=== PATIENT | female | born 1950 | race Caucasian/White ===

== ENCOUNTER 2023-10-26 14:09 | Emergency (ER) | payer MEDICARE, OTHER, SELFPAY ==
[2023-10-26 14:13] VITALS: BP 180/97
--- NOTE | 2023-10-26 15:14 | ED.GENMED ---
History of Present Illness
General
Chief Complaint: Flank Pain
Source: patient
Time Seen by Provider: 10/26/23 14:59
Travel History
Have you had any contact with someone who has COVID-19?: No
Do you have any symptoms of coronavirus? Fever > 100 degrees, chills, cough, shortness of breath, sore throat, loss of taste or smell, muscle aches, or headache?: No
History of Present Illness
History of Present Illness:
73-year-old female presents emergency department complaints of left flank pain that started yesterday and continues. The pain is very episodic described as coming and going every few minutes without specific provoking or relieving factors. The
pain is without radiation. Patient denies associated abdominal pain, upper back pain, chest pain, dyspnea, nausea, vomiting, fever, chills, dysuria, urgency, frequency, hematuria, vaginal clear discharge. Bowel movements are normal. Pain is not
particular reminiscent of prior kidney stones in the past.
Past History
Past History
ED Past Medical History: Hyperthyroidism and Other (Kidney stones, reflux)
ED Past Surgical History: Gynecological (Bilateral oophorectomy) and Urological; Negative Cardiac
Social History
Tobacco: Former smoker
Alcohol: Daily
Drug: None
Living: alone
Employment: Employed
Family History
Family History: Other (n/c)
Phy Exam
Physical Exam
Physical Exam:
GENERAL: Alert , in no apparent distress, extremely comfortable appearing, shopping on her phone when I entered the room, pleasant
EYE: pupils equal and reactive
NECK: Supple, no significant adenopathy.
ENT: o/p clr, mmm.
CARDIAC: Regular rate and rhythm .
LUNGS: Clear breath sounds bilaterally, no acute respiratory distress, no wheezes/rales/rhonchi
ABDOMEN: Soft, without focal tenderness, no r/g, no cvat
NEUROLOGICAL: Alert and oriented, no focal neuro deficits
SKIN: Warm and dry, skin intact.
MUSCULOSKELETAL: No edema, well perfused.
PSYCH: Normal and appropriate interaction.
Course
Orders/Labs/Results
Orders:
Orders
10/26/23 15:13
Ketorolac [Toradol] 15 mg IV NOW STA
10/26/23 15:14
CT Abd/pel Without Iv Or Oral Urgent
Comment:
Reason For Exam: L FLANK PAIN
10/26/23 15:27
Complete Blood Count/No Diff Urgent
Comprehensive Metabolic Panel Urgent
Urinalysis Reflex To Culture Urgent
Date Specimen was Collected: 10/26/23
Time Specimen was Collected: 15:22
Abnormal Lab Results
10/26/23
15:27
Chloride 109 H mmol/L
(98-107)
Carbon Dioxide 20 L mmol/L
(22-30)
BUN 24 H mg/dl
(7-17)
10/26/23 15:27
10/26/23 15:27
Vital Signs
Initial and Last Documented VS:
Initial Vital Signs
Temp Pulse Resp BP Pulse Ox
98.0 F 89 18 180/97 97
10/26/23 14:13 10/26/23 14:13 10/26/23 14:13 10/26/23 14:13 10/26/23 14:13
Last Documented Vital Signs
Temp Pulse Resp BP Pulse Ox
98.0 F 89 18 180/97 97
10/26/23 14:13 10/26/23 14:13 10/26/23 14:13 10/26/23 14:13 10/26/23 14:13
*Critical Care Note
Total Time (30-74mins, 75-104mins- exclusive of procedures): Not Applicable
Update Note
Update Note:
Patient presents to the Emergency Department with ____left flank pain
Number and Complexity of Problems Addressed at the Encounter
� Chronic conditions affecting care:
� Acute Exacerbation and/or Progression of Chronic Illness:
� Differential Diagnosis includes: But not limited to obstructing kidney stone, pyelonephritis, musculoskeletal pain, etc.
Amount and/or Complexity of Data to be Reviewed and Analyzed
� I performed an independent evaluation of and my interpretation is:
EKG:
CT: Report noted, stable, no findings to explain patient's pain, patient given copy of report and is aware of importance of follow-up regarding
Xrays:
Laboratory Studies: Generally unremarkable
Other:
� Review of other/old records reveals: Prior records reviewed, patient was noted to have operative intervention for kidney stone March 2021
� Clinical information was obtained by an independent historian:
� Prescriptions/Medications Considered but not given:
� Further testing considered but not performed:
Risk of Complications and/or Morbidity or Mortality of Patient Management
� Social determinants of health affecting care:
� Discussion with other providers (PCP, Hospitalists, Consultants, etc): 5:40 PM overall patient is extremely well-appearing, moves about bed easily, no vascular or neurological findings, workup inconsistent with urgent/emergent
cause of her symptoms such as AAA, obstructing stone, dissection, bowel obstruction, etc. etc. Pain may be musculoskeletal in etiology. Discussed with patient option to add muscle relaxant to her current regimen of Tylenol Motrin which she agrees
with. She has called a friend to drive her home instead of driving home herself. Risk and benefits of medication discussed with her. She will follow-up with her doctor tomorrow.
� Escalation of care including admission/observation vs risk of discharge considered:
ED Attending Note
-
Portions of this chart may have been created with voice recognition software.� Occasional wrong word or��sound alike� substitutions may have occurred due to the inherent limitations of voice recognition software.
Discharge Plan
Departure
Patient Disposition: Home (Routine Discharge)
Date of Disposition: 10/26/23
Time of Disposition: 17:49
Patient with high blood pressure during this ER visit?: Yes
Condition: Good
Discharge Problem:
Back pain
Instructions: Back Pain, BLOOD PRESSURE
Prescriptions:
New
cyclobenzaprine 10 mg tablet
10 mg PO BID PRN (Reason: pain) Qty: 13 0RF
No Action
methimazole 5 MG tablet
2.5 mg PO DAILY
ascorbic acid (vitamin C) [Vitamin C] 500 MG tablet
1,000 mg PO DAILY
Curcumin
2 cap PO DAILY
Zinc/Vit D/Vit K
1 cap PO DAILY
Referrals:
Janelle Whittington MD [Family Provider] - Tomorrow
Activity Restrictions/Additional Instructions:
IF YOU DEVELOP NEW OR WORSENING PAIN, FEVER, CHILLS, PAIN WITH URINATION, DIFFICULTY URINATING, ABDOMINAL PAIN, VOMITING, SWELLING, NUMBNESS, WEAKNESS, OR OTHER WORRISOME SIGNS, PLEASE RETURN TO THE ER IMMEDIATELY.
Interventions
Interventions:
*Risk Screen - Suicide Last Done: 10/26/23 15:20
*General Assessment Last Done: 10/26/23 14:13
*Neglect/Abuse Screening Last Done: 10/26/23 15:20
*ED COVID-19 Vaccine History Last Done: 10/26/23 14:13
ED-Female Genitourinary Assessment Last Done: 10/26/23 15:18
Discharge Date and Time
Print Language: TURKMEN
[2023-10-26 15:19] VITALS: BMI 29.3
[2023-10-26 16:00] VITALS: BP 157/94
[2023-10-26 16:09] LABS: Urine Albumin Negative (Neg - Trace); Urine Bilirubin Negative (Negative); Urine Character Clear (Clear); Urine Color Yellow; Urine Glucose Negative (Negative); Urine Ketone Negative (Negative); Urine Leukocyte Negative (Negative); Urine Nitrite Negative (Negative); Urine Occult Blood Negative (Negative); Urine Specific Gravity 1.015 (<1.030); Urine Urobilinogen Negative (Neg - 1+)
[2023-10-26 16:42] LABS: Hematocrit 38.2 % (37.0-47.0); Hemoglobin 13.1 g/dL (12.0-16.0); Mean Corp Hgb Conc. 34.3 g/dL (33.0-37.0); Mean Corpuscular Hgb 28.3 pg (27.0-31.0); Mean Corpuscular Volume 82.5 fL (81.0-99.0); Mean Platelet Volume 10.3 fL (7.4-10.4); Platelet Count 274 10^3/uL (130-400); Red Blood Cell Count 4.63 10^6/uL (4.20-5.40); Red Cell Dist. Width 13.2 % (11.5-14.5); White Blood Cell Count 8.2 10^3/uL (4.8-10.8)
[2023-10-26] MEDS: TORADOL 15 MG IV (16:42)
[2023-10-26 16:59] LABS: ALT (SGPT) 27 U/L (0-35); AST (SGOT) 30 U/L (14-36); Albumin 4.1 g/dl (3.5-5.0); Alkaline Phosphatase 94 U/L (38-126); Blood Urea Nitrogen 24 mg/dl (7-17); Calcium 10.1 mg/dl (8.4-10.2); Carbon Dioxide 20 mmol/L (22-30); Chloride 109 mmol/L (98-107); Estimated Creatinine Clearance 80 ml/min; Glucose 74 mg/dl (70-99); Potassium 4.4 mmol/L (3.5-5.1); Sodium 140 mmol/L (135-145); Total Bilirubin 0.6 mg/dl (0.2-1.3); Total Protein 7.4 g/dl (6.3-8.2); eGFR > 60.00
[2023-10-26 18:00] VITALS: BP 163/95
[2023-10-26] MEDS: FLEXERIL 10 MG PO (18:14)
== END 2023-10-26 18:35 | disposition home or self-care (01) ==
LOC: EMR 14:09
PROVIDERS: EMERGENCY PHYSICIAN Emergency Medicine; FAMILY PHYSICIAN Internal Medicine
DX: R10.9 Unspecified abdominal pain (principal); E05.90 Thyrotoxicosis, unspecified without thyrotoxic crisis or storm; K21.9 Gastro-esophageal reflux disease without esophagitis; Z87.442 Personal history of urinary calculi; Z87.891 Personal history of nicotine dependence; Z90.722 Acquired absence of ovaries, bilateral
CPT/HCPCS: 99284; 96374; 74176; 80053; 81003; 85027

== ENCOUNTER → 2024-01-05 13:02 | Outpatient (REF) | payer MEDICARE, OTHER, SELFPAY | LOC: HWRAD 13:02 | PROVIDERS: ATTENDING PHYSICIAN Internal Medicine | DX: Z12.31 Encounter for screening mammogram for malignant neoplasm of breast (principal); Z78.0 Asymptomatic menopausal state | CPT/HCPCS: 77063; 77067; 77080 ==

== ENCOUNTER → 2024-05-04 10:17 | Outpatient (REF) | payer MEDICARE, OTHER, SELFPAY | LOC: RAD 10:17 | PROVIDERS: ATTENDING PHYSICIAN Surgery; FAMILY PHYSICIAN Internal Medicine | DX: N13.2 Hydronephrosis with renal and ureteral calculous obstruction (principal) | CPT/HCPCS: 78708; A9539 ==

== ENCOUNTER 2024-06-25 06:30 | Day surgery (SDC) | payer MEDICARE, OTHER, SELFPAY | END 2024-06-25 11:34 | disposition home or self-care (01) | LOC: GI 06:30 | PROVIDERS: ATTENDING PHYSICIAN Internal Medicine Gastroenterology | DX: Z12.11 Encounter for screening for malignant neoplasm of colon (principal); D12.2 Benign neoplasm of ascending colon; D12.3 Benign neoplasm of transverse colon; K57.30 Diverticulosis of large intestine without perforation or abscess without bleeding; K64.0 First degree hemorrhoids; R19.7 Diarrhea, unspecified; K22.2 Esophageal obstruction; K44.9 Diaphragmatic hernia without obstruction or gangrene; R12 Heartburn | CPT/HCPCS: 45385; 45380; 43239; 88305; 88342 ==

== ENCOUNTER → 2024-07-09 08:16 | Outpatient (REF) | payer MEDICARE, OTHER, SELFPAY | LOC: RAD 08:16 | PROVIDERS: ATTENDING PHYSICIAN Internal Medicine Endocrinology, Diabetes & Metabolism; FAMILY PHYSICIAN Internal Medicine | DX: E05.90 Thyrotoxicosis, unspecified without thyrotoxic crisis or storm (principal); E05.20 Thyrotoxicosis with toxic multinodular goiter without thyrotoxic crisis or storm | CPT/HCPCS: 76536 ==

== ENCOUNTER 2024-08-26 09:42 | Inpatient (IN) | payer MEDICARE, OTHER, SELFPAY ==
[2024-08-06 11:09] LABS: Hematocrit 40.4 % (37.0-47.0); Hemoglobin 13.5 g/dL (12.0-16.0); Mean Corp Hgb Conc. 33.4 g/dL (33.0-37.0); Mean Corpuscular Hgb 28.4 pg (27.0-31.0); Mean Corpuscular Volume 85.1 fL (81.0-99.0); Mean Platelet Volume 10.6 fL (7.4-10.4); Platelet Count 296 10^3/uL (130-400); Red Blood Cell Count 4.75 10^6/uL (4.20-5.40); Red Cell Dist. Width 13.3 % (11.5-14.5)
[2024-08-06 11:40] LABS: ALT (SGPT) 34 U/L (0-35); AST (SGOT) 27 U/L (14-36); Albumin 4.5 g/dl (3.5-5.0); Alkaline Phosphatase 77 U/L (38-126); Blood Urea Nitrogen 23 mg/dl (7-17); Calcium 9.9 mg/dl (8.4-10.2); Carbon Dioxide 21 mmol/L (22-30); Chloride 106 mmol/L (98-107); Glucose 147 mg/dl (70-99); Sodium 138 mmol/L (135-145); Total Bilirubin 0.9 mg/dl (0.2-1.3); Total Protein 7.3 g/dl (6.3-8.2); eGFR 59.86
[2024-08-06 14:15] VITALS: BMI 29.0
[2024-08-06 14:34] LABS: Glycohemoglobin (HgbA1c) 5.5 % (4.0-5.6)
[2024-08-12 07:42] VITALS: BMI 29.0
--- NOTE | 2024-08-12 15:32 | VNURNOTE ---
Chart reviewed. Patient will be admitted morning of surgery for L TKA 08/26. Patient will have a CM at to assess DC dispo. VN referral in [facility] status in [facility]. Liaison will follow up with CM post-op.
[2024-08-26] VITALS (14 sets, daily range): BP systolic 95–145; BP diastolic 48–86; PULSE 75; O2SAT 95; BMI 29.0
[2024-08-26] MEDS: CELEBREX 200 MG PO (10:09)
[2024-08-26] MEDS: NORMOSOL-R/PLASMALYTE-A 1000 IV ×2 (10:10→15:42)
[2024-08-26] MEDS: TYLENOL 650 MG PO ×3 (10:10→19:38)
--- NOTE | 2024-08-26 12:43 | W.PN.UPDATE ---
Update Note
Progress Note Update
L knee OA s/p L TKA w/ Dr Viramontes 08/26/24
DVT prophylaxis - ASA, b/l venous foot pumps
GERD and Hiatal hernia - add Pepcid HS
Daily alcohol - 1-2 glasses of wine nightly reported
- Add thiamine and folic acid
- Consider Serax HS and Gabapentin
- Monitor for potential s/sx of withdrawal
Hypercholesterolemia
Mild Schatzki's ring
Colon polyps
Diverticulosis
Cholelithiasis, asymptomatic
Nephrolithiasis
E coli bacteremia and urosepsis secondary to the above 02/2021
Lumbosacral degenerative disc disease
Hyperthyroidism
History of endometrial hyperplasia
Osteopenia
History of tobacco abuse
[2024-08-26] MEDS: ROXICODONE 5 MG PO ×2 (15:16→19:38)
[2024-08-26] MEDS: NEURONTIN PO (15:33)
[2024-08-26] MEDS: TYLENOL PO (15:41)
[2024-08-26] MEDS: TORADOL IV (15:44)
[2024-08-26] MEDS: VITAMIN B1 100 MG PO (16:12)
[2024-08-26] MEDS: TAPAZOLE 5 MG PO (16:13)
[2024-08-26] MEDS: FOLVITE 0.5 MG PO (16:13)
[2024-08-26] MEDS: VITAMIN D3 (cholecalciferol) 125 MCG PO (16:13)
--- NOTE | 2024-08-26 16:22 | PTCARENOTE ---
Received patient from PACU via bed. Pt AAOX3. Pox: 96%RA. IVFs infusing without difficulty. Patient denies pain. Call jones within reach. Plan of care ongoing.
--- NOTE | 2024-08-26 16:54 | W.PN.UPDATE ---
Update Note
Progress Note Update
Patient doing well s/p L TKR. VSS. Has been OOB. Pulm: nonlabored. CV: regular. LLE: Dressing CDI. NVI distally. Calf soft. Able to fully extend. Postop xray as expected. ASA for DVT prophylaxis. Plan for discharge home tomorrow with
home PT and VN for 2 weeks.
[2024-08-26] MEDS: ANCEF 5 IV (17:04)
[2024-08-26] MEDS: ASPIRIN 325 MG PO (17:05)
[2024-08-26] MEDS: DECADRON 4 MG PO (19:38)
[2024-08-26] MEDS: COLACE 100 MG PO (19:38)
[2024-08-26] MEDS: SENOKOT 17.2 MG PO (19:38)
[2024-08-26] MEDS: BACTROBAN 2% OINTMENT 1 APPLIC NASAL (19:39)
[2024-08-26] MEDS: TORADOL 10 MG IV (19:39)
[2024-08-26] MEDS: NEURONTIN 300 MG PO (19:39)
[2024-08-26] MEDS: PEPCID 20 MG PO (22:01)
[2024-08-27] MEDS: TYLENOL PO ×2 (01:34→05:23)
[2024-08-27] MEDS: TYLENOL 650 MG PO ×2 (01:46→08:51)
[2024-08-27] MEDS: ANCEF 5 IV (01:47)
[2024-08-27 03:25] VITALS: BP 137/85
--- NOTE | 2024-08-27 07:43 | W.PN.ORTHO ---
Today's Communication / Plan
-
Discharge home today with VN and PT
Assessment
.
Distal Motor Intact: Yes
Dressing:
Clean, dry and intact.
Assessment:
Doing well s/p L TKR
Plan
.
Surgery / Date: 08/26/2024 L TKR bryce
DVT Prophylaxis: Aspirin
Activity:
Out of bed.
PT/OT
Discharge Plan: Home w/ VN
Subjective
.
.:
Patient resting comfortably. Doing well s/p L TKR
Vital Signs and Labs
.
Vital Signs and Labs:
Lab Results
08/06/24 10:43
08/06/24 10:43
Temp Pulse Resp BP Pulse Ox
97.6 F 67 16 137/85 100
08/27/24 03:25 08/27/24 03:25 08/27/24 03:25 08/27/24 03:25 08/27/24 03:25
Non-invasive Hgb result: 13.9
Physical Exam
-
Pulm: nonlabored
LLE: Calf soft. NVI distally. Dressing CDI. Able to fully extend
[2024-08-27 08:05] VITALS: BP 124/76
[2024-08-27 08:44] VITALS: BP 157/79; PULSE 70; O2SAT 96
[2024-08-27] MEDS: TAPAZOLE 5 MG PO (08:50)
[2024-08-27] MEDS: BACTROBAN 2% OINTMENT 1 APPLIC NASAL (08:50)
[2024-08-27] MEDS: SENOKOT 17.2 MG PO (08:51)
[2024-08-27] MEDS: VITAMIN B1 100 MG PO (08:51)
[2024-08-27] MEDS: NEURONTIN 300 MG PO (08:51)
[2024-08-27] MEDS: ASPIRIN 325 MG PO (08:51)
[2024-08-27] MEDS: DECADRON 4 MG PO (08:51)
[2024-08-27] MEDS: FOLVITE 0.5 MG PO (08:52)
[2024-08-27] MEDS: VITAMIN D3 (cholecalciferol) 125 MCG PO (08:52)
[2024-08-27] MEDS: CELEBREX 200 MG PO (08:52)
[2024-08-27] MEDS: COLACE 100 MG PO (08:52)
[2024-08-27] MEDS: TORADOL 10 MG IV (08:52)
--- NOTE | 2024-08-27 09:14 | W.PN.ORTHO ---
Today's Communication / Plan
-
Await PT recs. Pt did overall well w/ OT.
D/c later today if remaining clinically stable.
Assessment
.
Distal Motor Intact: Yes
Dressing:
Clean, dry and intact.
Assessment:
L knee OA s/p L TKA w/ Dr Viramontes 08/26/24
DVT prophylaxis - ASA, b/l venous foot pumps
GERD and Hiatal hernia - continue Pepcid HS
Daily alcohol - 1-2 glasses of wine nightly reported
- Add thiamine and folic acid
- Consider Serax HS and Gabapentin
- No s/sx of withdrawal during admission
Hypercholesterolemia
Mild Schatzki's ring
Colon polyps
Diverticulosis
Cholelithiasis, asymptomatic
Nephrolithiasis
E coli bacteremia and urosepsis secondary to the above 02/2021
Lumbosacral degenerative disc disease
Hyperthyroidism
History of endometrial hyperplasia
Osteopenia
History of tobacco abuse
Plan
.
Surgery / Date: L TKA w/ Dr Viramontes 08/26/24
DVT Prophylaxis: Aspirin
Activity:
Out of bed.
PT/OT
Discharge Plan: Home w/ VN
Subjective
.
.:
Patient resting comfortably in her chair.
L knee pain overall well controlled w/ current pain meds.
Denies any new significant complaints.
Vital Signs and Labs
.
Vital Signs and Labs:
Lab Results
08/06/24 10:43
08/06/24 10:43
Temp Pulse Resp BP Pulse Ox
97.6 F 65 18 124/76 95
08/27/24 08:05 08/27/24 08:05 08/27/24 08:05 08/27/24 08:05 08/27/24 08:05
Non-invasive Hgb result: 13.9
Physical Exam
-
HEENT: No pallor, cyanosis, or jaundice. Throat clear.
NECK: Supple. No JVD.
RESPIRATORY: Lungs clear to auscultation.
CVS: S1, S2 normal. RRR.�
ABDOMEN: Soft, non-tender. No distension.
EXTREMITIES: Expected post-surgical R knee edema. No calf pain with palpation/dorsiflexion. Calves soft.
PROFESSIONAL FEE CODER: AOx3. No focal deficits. performing arts road manager grossly intact
--- NOTE | 2024-08-27 09:23 | W.DS.TRANS ---
DC Summary - Quality Assurance Supervisor Body
-
Discharge Instructions:
Sleep Apnea Risk Low
Discharge Diagnosis/Procedures L knee OA s/p L TKA w/ Dr Viramontes 08/26/24
Diet Regular
Activity As tolerated,With Walker
Driving Restrictions Not until seen by your Dr
Bathing Restrictions OK to Shower
Other Services PT,VN
Wound Care Dressing to be removed 1 week post-surgery.
[place] to be removed at 2 week follow-up with
surgeon's office.
Instructions:
Stand-Alone Forms: Total Hip/Knee Replacement D/C
Changes to Home Medications: Yes
Discharge Medications:
DC Medications w/original date entered in [employer]
methimazole 5 mg tablet 5 mg PO DAILY Thyroid 03/05/21
Drink Supplement 1 unit PO DAILY Supplement 08/04/24
cholecalciferol (vitamin D3) 125 mcg (5,000 unit) tablet (Vitamin D3) 125 mcg PO DAILY Supplement 08/04/24
mupirocin 2 % topical ointment 1 applic intranasal BID #1 tube 08/06/24
acetaminophen 500 mg tablet (Tylenol Extra Strength) 1,000 mg (2 x 500 mg) PO Q6H #60 tabs 08/27/24
aspirin 325 mg tablet 325 mg PO DAILY #14 tabs 08/27/24
celecoxib 200 mg capsule 200 mg PO DAILY #14 caps 08/27/24
dexamethasone 4 mg tablet 4 mg PO BID Anti-inflammatory #5 tabs 08/27/24
docusate sodium 100 mg capsule 100 mg PO BID #30 caps 08/27/24
famotidine 20 mg tablet 20 mg PO HS #30 tabs 08/27/24
gabapentin 300 mg capsule 300 mg PO BID neuropathic pain #20 caps 08/27/24
ondansetron HCl 4 mg tablet 4 mg PO Q6H PRN nausea and vomiting #30 tabs 08/27/24
oxycodone 5 mg tablet 5 - 10 mg (1 - 2 x 5 mg) PO Q6H PRN moderate-severe pain #30 tabs 08/27/24
sennosides 8.6 mg tablet (Myra-jean carlos) 17.2 mg (2 x 8.6 mg) PO BID #30 tabs 08/27/24
Home Medication Changes
acetaminophen 500 mg tablet (Tylenol Extra Strength) 1,000 mg (2 x 500 mg) PO Q6H #60 tabs 08/27/24
aspirin 325 mg tablet 325 mg PO DAILY #14 tabs 08/27/24
celecoxib 200 mg capsule 200 mg PO DAILY #14 caps 08/27/24
dexamethasone 4 mg tablet 4 mg PO BID Anti-inflammatory #5 tabs 08/27/24
docusate sodium 100 mg capsule 100 mg PO BID #30 caps 08/27/24
famotidine 20 mg tablet 20 mg PO HS #30 tabs 08/27/24
gabapentin 300 mg capsule 300 mg PO BID neuropathic pain #20 caps 08/27/24
ondansetron HCl 4 mg tablet 4 mg PO Q6H PRN nausea and vomiting #30 tabs 08/27/24
oxycodone 5 mg tablet 5 - 10 mg (1 - 2 x 5 mg) PO Q6H PRN moderate-severe pain #30 tabs 08/27/24
sennosides 8.6 mg tablet (Myra-jean carlos) 17.2 mg (2 x 8.6 mg) PO BID #30 tabs 08/27/24
Pending Results: No
[2024-08-27] MEDS: ROXICODONE 5 MG PO (09:58)
--- NOTE | 2024-08-27 10:48 | CM ---
Initial assessment completed
Pt lives alone in an apartment; 11 steps to enter
Independent, no devices, drives prior to admission
DME - rolling walker, single point cane, toilet rails
Denies past SNF/HH
Has ride at discharge
PCP - Janelle Whittington
Pharm - [facility] in [place]
PT/OT recs - HH. Discussed with pt - no preference
Referred to [facility] for HH needs
Given IMM
Plan - home with [facility]
[2024-08-27 10:56] VITALS: BP 134/80; PULSE 79
[2024-08-27 11:15] VITALS: BP 129/81
--- NOTE | 2024-08-27 11:38 | VNURNOTE ---
Attempted to contact patient via phone to introduce home care services. no answer. Referral placed in [facility].
== END 2024-08-27 12:25 | disposition home health service (06) | DRG 470 ==
LOC: 2 SOUTH 09:42
PROVIDERS: ADMITTING PHYSICIAN Orthopaedic Surgery; FAMILY PHYSICIAN Internal Medicine
PROC: 0SRD0J9 Replacement of Left Knee Joint with Synthetic Substitute, Cemented, Open Approach (ICD-10-PCS; 2024-08-26)
DX: M17.12 Unilateral primary osteoarthritis, left knee (principal); E78.00 Pure hypercholesterolemia, unspecified; K21.9 Gastro-esophageal reflux disease without esophagitis; K44.9 Diaphragmatic hernia without obstruction or gangrene; M51.379 Other intervertebral disc degeneration, lumbosacral region without mention of lumbar back pain or lower extremity pain; E05.90 Thyrotoxicosis, unspecified without thyrotoxic crisis or storm; M85.80 Other specified disorders of bone density and structure, unspecified site; K22.2 Esophageal obstruction; Z86.0100 Personal history of colon polyps, unspecified; Z87.19 Personal history of other diseases of the digestive system; Z87.442 Personal history of urinary calculi; Z87.440 Personal history of urinary (tract) infections; Z87.891 Personal history of nicotine dependence; Z59.82 Transportation insecurity
CPT/HCPCS: 36415; 73560; 80053; 83036; 85027; 87070; 93005; 97110; 97116; 97162; 97166; 97535; C1713; C1776

== ENCOUNTER → 2025-06-02 10:29 | Outpatient (REF) | payer MEDICARE, OTHER, SELFPAY | LOC: RAD 10:29 | PROVIDERS: ATTENDING PHYSICIAN Surgery; FAMILY PHYSICIAN Internal Medicine | DX: N13.0 Hydronephrosis with ureteropelvic junction obstruction (principal) | CPT/HCPCS: 78708; A9539 ==